=== PATIENT | female | born 1975 ===

== ENCOUNTER 2017-11-15 09:52 | Emergency (ER) | payer OTHER ==
[2017-11-15 10:12] VITALS: O2SAT 100
[2017-11-15] MEDS ORDERED: Albuterol-Ipratrop 3 mg / 0.5 (3 ml) UD INH STA ×2 (10:20→11:47)
[2017-11-15] MEDS ORDERED: Albuterol-Ipratrop 3 mg / 0.5 (3 ml) UD ONE ×2 (10:27→12:12)
--- NOTE | 2017-11-15 11:50 | C.PDOC ---
History Of Present Illness 42 year old female with PMHx of asthma presents to the ED c/o of chest tightness , wheezing that started earlier today. Patient reports she has an MDI and ran out of medication for nebulizer treatments. Patient came in having 1 treatment prior to examination, currently speaking in full sentences. Patient denies dizziness, CP, fever, chills, nausea, vomit, diarrhea, abdominal pain, prior intubations. Time Seen by Provider: 11/15/17 11:04 Chief Complaint (Nursing): Shortness Of Breath History Per: Patient History/Exam Limitations: no limitations Onset/Duration Of Symptoms: Hrs Current Symptoms Are (Timing): Still Present Quality: Tightness Current Respiratory Medications: See Home Med List Recent travel outside of the [place]: No Additional History Per: Patient Past Medical History Reviewed: Historical Data, Nursing Documentation, Vital Signs Vital Signs: Last Vital Signs Temp 98.3 F 11/15/17 13:43 Pulse 80 11/15/17 13:43 Resp 16 11/15/17 13:43 BP 108/70 11/15/17 13:43 Pulse Ox 100 11/15/17 13:43 - Medical History PMH: Asthma, Bronchitis, Colonic Polyps, Gastritis, Migraine Denies: Chronic Kidney Disease Surgical History: Endoscopy - [facility] Procedures NEBULIZER THERAPY (05/24/04) Family History: States: Unknown Family Hx - Social History Hx Alcohol Use: No Hx Substance Use: No - Immunization History Hx Tetanus Toxoid Vaccination: No Hx Influenza Vaccination: No Hx Pneumococcal Vaccination: No Review Of Systems Constitutional: Negative for: Fever, Chills Cardiovascular: Positive for: Chest Pain Respiratory: Positive for: Shortness of Breath. Negative for: Cough Gastrointestinal: Negative for: Nausea, Vomiting, Abdominal Pain Genitourinary: Negative for: Dysuria, Hematuria Skin: Negative for: Rash Neurological: Negative for: Weakness, Numbness, Headache Physical Exam - Physical Exam Appears: Non-toxic, No Acute Distress, Other (Speakin in full sentences) Skin: Normal Color, Warm, Dry Head: Atraumatic, Normacephalic Eye(s): bilateral: Normal Inspection Oral Mucosa: Moist Neck: Normal ROM, Supple Chest: Symmetrical Cardiovascular: Rhythm Regular, No Murmur Respiratory: No Rhonchi, No Stridor, Wheezing (Mild scatter expiratory at left base) Gastrointestinal/Abdominal: Soft, No Tenderness, No Guarding, No Rebound Extremity: Normal ROM, No Deformity, No Swelling Neurological/Psych: Oriented x3, Normal Speech, Normal Cognition Gait: Steady ED Course And Treatment O2 Sat by Pulse Oximetry: 100 (ON RA) Pulse Ox Interpretation: Normal Medical Decision Making Medical Decision Making: Impression: SOB, asthmatic ran out of meds Plan: * Duoneb 3 ml INH * Prednisone 60 mg PO * Nebulizer treatment 130 pm pt feel much better, no more chest tightness. lungs cta bilaterall. pf post treatments 310, pt given peak flow meter to take home to monitor numbers. Disposition Counseled Patient/Family Regarding: Diagnosis, Need For Followup, Rx Given - Disposition Referrals: Ely Land MD [Non-Staff] - Disposition: HOME/ ROUTINE Disposition Time: 13:34 Condition: IMPROVED Additional Instructions: Please use inhaler and nebulizer as prescribed. Keep track of your daily peak flow. Take prednisone. Follow up with your doctor. Return to ER for any worse symptoms. Prescriptions: Albuterol 0.083% [Albuterol 0.083% Inhal Yoselin (2.5 mg/3 ml) UD] 3 ml IH Q6 #50 neb Albuterol HFA [Ventolin HFA 90 mcg/actuation (8 g)] 2 puff IH Q6 #1 inhaler predniSONE [predniSONE Tab] 2 tab PO DAILY #8 tab Instructions: Asthma (ED) Forms: [facility] (Arabic), General Discharge Instructions - Clinical Impression Clinical Impression: Asthma exacerbation - PA / IN PROCESS INSPECTOR / Resident Statement MD/DO has reviewed & agrees with the documentation as recorded. - Scribe Statement The provider has reviewed the documentation as recorded by the Scribe Reed Garg All medical record entries made by the Scribe were at my direction and personally dictated by me. I have reviewed the chart and agree that the record accurately reflects my personal performance of the history, physical exam, medical decision making, and the department course for this patient. I have also personally directed, reviewed, and agree with the discharge instructions and disposition.
[2017-11-15 13:44] VITALS: BP 108/70; PULSE 80; RESP 16; TEMP 98.3
== END 2017-11-15 13:43 | disposition home or self-care (01) ==
LOC: C.ER 09:52
DX: J45.901 Unspecified asthma with (acute) exacerbation (principal)

== ENCOUNTER 2018-05-16 17:25 | Emergency (ER) | payer OTHER ==
[2018-05-16 17:30] VITALS: BP 110/70; PULSE 78; RESP 18; TEMP 98; O2SAT 99
== END 2018-05-16 17:58 | disposition left against medical advice (07) ==
LOC: C.ER 17:25
DX: Z02.89 Encounter for other administrative examinations (principal); R10.9 Unspecified abdominal pain